=== PATIENT | female | born 1985 | race Caucasian/White ===

== ENCOUNTER → 2021-10-01 | Outpatient (CLI) | payer BC ==
[2021-10-01 13:39] LABS: BASO # 0.03 K/mm3 (0.02-0.10); EOS # 0.39 K/mm3 (0.04-0.40); EOS % 5.5 % (1.0-5.0); HEMATOCRIT 41.2 % (37.0-47.0); HEMOGLOBIN 13.4 g/dL (12.5-16.0); LYMPH# 1.91 K/mm3 (1.50-4.00); MEAN CELL VOLUME 100 fl (78-100); MEAN CORPUSCULAR HEMOGLOBIN 32 pg (27-31); MEAN CORPUSCULAR HGB CONC 33 g/dL (33-37); MEAN PLATELET VOLUME 9.3 fl (7.4-10.4); MONO # 0.46 K/mm3 (0.20-0.80); NEU # 4.28 K/mm3 (1.40-6.50); PLATELET COUNT 208 K/mm3 (130-400); RED BLOOD COUNT 4.14 M/mm3 (4.10-5.30); RED CELL DISTRIBUTION WIDTH 11.7 % (11.5-14.5); WHITE BLOOD COUNT 7.1 K/mm3 (4.8-10.8)
[2021-10-01 13:47] LABS: POTASSIUM 4.1 mmol/L (3.5-5.1)
[2021-10-01 13:48] LABS: ALBUMIN 3.7 g/dL (3.5-5.0)
[2021-10-01 13:49] LABS: CALCIUM 9.2 mg/dL (8.3-10.5)
[2021-10-01 13:52] LABS: TOTAL BILIRUBIN 0.8 mg/dL (0.2-1.2)
[2021-10-01 14:11] LABS: D-DIMER 0.69 mg/L FEU (0.15-0.50)
[2021-10-05 08:48] LABS: T3 FREE 2.8 pg/mL (1.7-3.7)
== END ==
LOC: LAB 13:08
PROVIDERS: Family Medicine
DX: Z00.00 Encounter for general adult medical examination without abnormal findings (principal); E03.9 Hypothyroidism, unspecified; R79.1 Abnormal coagulation profile; E55.9 Vitamin D deficiency, unspecified

== ENCOUNTER → 2021-10-08 | Outpatient (CLI) | payer BC | LOC: RAD 13:00 | DX: E04.2 Nontoxic multinodular goiter (principal) ==

== ENCOUNTER → 2024-07-17 | Outpatient (CLI) | payer BC | LOC: LAB 11:40 | DX: E03.9 Hypothyroidism, unspecified (principal); M25.50 Pain in unspecified joint ==

== ENCOUNTER → 2024-07-17 | Outpatient (CLI) | payer OTHER, BC | LOC: RAD 10:23 | DX: M25.551 Pain in right hip (principal); M25.531 Pain in right wrist; M25.561 Pain in right knee; M79.642 Pain in left hand; V89.2XXA Person injured in unspecified motor-vehicle accident, traffic, initial encounter ==

== ENCOUNTER → 2024-08-16 | Outpatient (CLI) | payer OTHER ==
[~2024-08-16] MED LIST: Iohexol 300 - 100 ML VIAL IV ONE
== END ==
LOC: RAD 08:21
DX: R10.9 Unspecified abdominal pain (principal)
CPT/HCPCS: Q9967